=== PATIENT | male | born 1965 | race Caucasian/White ===

== ENCOUNTER 2017-02-06 12:51 | Emergency (ER) | payer OTHER ==
[2017-02-06 12:58] VITALS: BP 138/89; PULSE 86; TEMP 97.7; BMI 32.3
[2017-02-06] MEDS ORDERED: SODIUM CHLORIDE 1,000 ML IV STA (13:22)
[2017-02-06] MEDS ORDERED: MAG HYDROX/AL HYDROX/SIMETH 30 ML UNIT-DOSE CUP PO ONE (13:22)
[2017-02-06] MEDS ORDERED: KETOROLAC TROMETHAMINE 30 MG/1 ML VIAL IVPUSH ONE (13:22)
[2017-02-06] MEDS ORDERED: ONDANSETRON 4 MG/2 ML VIAL IVPB ONE (13:22)
[2017-02-06] MEDS ORDERED: FAMOTIDINE 20 MG/50 ML IVPB 50 ML IVPB ONE ×2 (13:22→14:02)
--- NOTE | 2017-02-06 13:49 | PDOC ---
History of Present Illness - General History Source: Patient Exam Limitations: No Limitations - History of Present Illness Initial Comments: 02/06/17 14:04 The patient is a 51 year old male presenting with his , with no significant past medical history, who presents to the emergency department with diarrhea, nausea and fever for the past 5 days. He describes his diarrhea as nonbloody, with multiple episodes. He reports that he recently arrived back from [facility] 4 days ago, where he had a 1 week stay. He notes that he ate octopus while he was there but he had eaten octopus in the past without any complications. He states that his fever has been as high as 102-103 degrees F. The patient denies chest pain, shortness of breath, headache and dizziness. Denies chills, vomit, and constipation. Denies dysuria, frequency, urgency and hematuria. Allergies: None Past surgical history: None reported Social history: No alcohol, tobacco or drug use reported <Yemi Larkin - Last Filed: 02/06/17 14:04> - General History Source: Patient, Family Exam Limitations: No Limitations <Jarred Willard - Last Filed: 02/06/17 15:01> - General Chief Complaint: Diarrhea Stated Complaint: ABD PAIN Time Seen by Provider: 02/06/17 13:16 Past History <Yemi Larkin - Last Filed: 02/06/17 14:04> - Psycho/Social/Smoking Cessation Hx Anxiety: No Suicidal Ideation: No Smoking History: Never smoked Have you smoked in the past 12 months: No Information on smoking cessation initiated: No Hx Alcohol Use: No Drug/Substance Use Hx: No Substance Use Type: Alcohol <Jarred Willard - Last Filed: 02/06/17 15:01> - Past Medical History Allergies/Adverse Reactions: Allergies Allergy/AdvReac Type Severity Reaction Status Date / Time No Known Allergies Allergy Verified 02/06/17 12:56 Home Medications: Ambulatory Orders Ciprofloxacin [Cipro -] 500 mg PO Q12H #6 tablet 02/06/17 Mag Hydrox/Al Hydrox/Simeth [Mylanta Suspension -] 30 ml PO Q6H PRN #1 bottle Review of Systems - Review of Systems Able to Perform ROS?: Yes Comments:: 02/06/17 14:05 GENERAL/CONSTITUTIONAL: (+) Fever. No chills. No weakness. HEAD, EYES, EARS, NOSE AND THROAT: No change in vision. No ear pain or discharge. No sore throat. CARDIOVASCULAR: No chest pain or shortness of breath RESPIRATORY: No cough, wheezing, or hemoptysis. GASTROINTESTINAL: (+) Diarrhea, nausea. No vomiting or constipation. GENITOURINARY: No dysuria, frequency, or change in urination. MUSCULOSKELETAL: No joint or muscle swelling or pain. No neck or back pain. SKIN: No rash NEUROLOGIC: No headache, vertigo, loss of consciousness, or change in strength/ sensation. ENDOCRINE: No increased thirst. No abnormal weight change HEMATOLOGIC/LYMPHATIC: No anemia, easy bleeding, or history of blood clots. ALLERGIC/IMMUNOLOGIC: No hives or skin allergy. <Yemi Larkin - Last Filed: 02/06/17 14:04> *Physical Exam - Vital Signs Last Vital Signs Temp Pulse Resp BP Pulse Ox 97.7 F 86 18 138/89 100 02/06/17 12:56 02/06/17 12:56 02/06/17 12:56 02/06/17 12:56 02/06/17 12:56 - Physical Exam Comments: 02/06/17 14:05 GENERAL: Awake, alert, and fully oriented, in no acute distress HEAD: No signs of trauma, normocephalic, atraumatic EYES: PERRLA, EOMI, sclera anicteric, conjunctiva clear ENT: Auricles normal inspection, hearing grossly normal, nares patent, oropharynx clear without Exudates. (+) Dry mucosa. NECK: Normal ROM, supple, no lymphadenopathy, JVD, or masses LUNGS: No distress, speaks full sentences, clear to auscultation bilaterally HEART: Regular rate and rhythm, normal S1 and S2, no murmurs, rubs or gallops, peripheral pulses normal and equal bilaterally. ABDOMEN: Soft, nontender, normoactive bowel sounds. No guarding, no rebound. No masses EXTREMITIES: Normal inspection, Normal range of motion, no edema. No clubbing or cyanosis. NEUROLOGICAL: Cranial nerves II through XII grossly intact. Normal speech, normal gait, no focal sensorimotor deficits SKIN: Warm, Dry, normal turgor, no rashes or lesions noted. <Yemi Larkin - Last Filed: 02/06/17 14:04> - Vital Signs Last Vital Signs Temp Pulse Resp BP Pulse Ox 97.7 F 86 18 138/89 100 02/06/17 12:56 02/06/17 12:56 02/06/17 12:56 02/06/17 12:56 02/06/17 12:56 <Jarred Willard - Last Filed: 02/06/17 15:01> ED Treatment Course - LABORATORY CBC & Chemistry Diagram: 02/06/17 14:10 02/06/17 14:10 <Jarred Willard - Last Filed: 02/06/17 15:01> Medical Decision Making - Medical Decision Making 02/06/17 13:46 A portion of this note was documented by scribe services under my direction. I have reviewed the details of the note, within reason, and agree with the documentation with the following case summary and management plan written by me. Patient treated in the ED. Nursing notes are reviewed and incorporated into the medical decision-making. Vital signs reviewed. Peripheral IV access obtained by the nurse, laboratory studies are drawn and sent, reviewed and interpreted by myself. Vital Signs Temp Pulse Resp BP Pulse Ox 97.7 F 86 18 138/89 100 02/06/17 12:56 02/06/17 12:56 02/06/17 12:56 02/06/17 12:56 02/06/17 12:56 51-year-old male with no past medical history presents with persistent diarrhea for 5 days. The patient recent travel from [facility] for vacation. Since then, patient's been persistent diarrhea and temperature 101 degrees yesterday. Denies nausea, vomiting. Denies abdominal pain. I suspect the patient likely has traveler's diarrhea. He'll likely benefit from antibiotics. We'll obtain labs, treat symptoms and give IV fluids and reassess. 02/06/17 14:57 CBC, BMP 02/06/17 14:10 02/06/17 14:10 CMP Sodium 138 mmol/L (136-145) 02/06/17 14:10 Potassium 3.7 mmol/L (3.5-5.1) 02/06/17 14:10 Chloride 102 mmol/L (98-107) 02/06/17 14:10 Carbon Dioxide 25 mmol/L (21-32) 02/06/17 14:10 Anion Gap 11 (8-16) 02/06/17 14:10 BUN 16 mg/dL (7-18) 02/06/17 14:10 Creatinine 1.0 mg/dL (0.7-1.3) 02/06/17 14:10 Creat Clearance w eGFR > 60 (>60) 02/06/17 14:10 Random Glucose 117 mg/dL (74-106) H 02/06/17 14:10 Calcium 8.7 mg/dL (8.5-10.1) 02/06/17 14:10 Magnesium 2.3 mg/dL (1.8-2.4) 02/06/17 14:10 Total Bilirubin 0.5 mg/dL (0.2-1.0) 02/06/17 14:10 AST 43 U/L (15-37) H 02/06/17 14:10 ALT 52 U/L (12-78) 02/06/17 14:10 Alkaline Phosphatase 100 U/L (45-117) 02/06/17 14:10 Total Protein 7.9 g/dl (6.4-8.2) 02/06/17 14:10 Albumin 4.0 g/dl (3.4-5.0) 02/06/17 14:10 Lipase 201 U/L (73-393) 02/06/17 14:10 Labs reviewed. Pt reports feeling better. Will discharge with cipro for traveller's diarrhea. I discussed the physical exam findings, ancillary test results and final diagnoses with the patient. I answered all of the patient's questions. The patient was satisfied with the care received and felt comfortable with the discharge plan and treatment plan. The patient will call their primary care physician within 24 hours to arrange follow-up and will return to the Emergency Department with any new, persistant or worsening symptoms. <Jarred Willard - Last Filed: 02/06/17 15:01> *DC/Admit/Observation/Transfer - Attestations Scribe Attestion: 02/06/17 14:05 Documentation prepared by Yemi Larkin, acting as medical claims examiner for Jarred Willard MD <Yemi Larkin - Last Filed: 02/06/17 14:04> - Discharge Dispostion Admit: No <Jarred Willard - Last Filed: 02/06/17 15:01> Diagnosis at time of Disposition: Travelers' diarrhea - Discharge Dispostion Disposition: HOME Condition at time of disposition: Improved - Prescriptions Prescriptions: Ciprofloxacin [Cipro -] 500 mg PO Q12H #6 tablet Mag Hydrox/Al Hydrox/Simeth [Mylanta Suspension -] 30 ml PO Q6H PRN #1 bottle PRN Reason: Abdominal Pain - Referrals Referrals: STAFF,NOT ON [Primary Care Provider] - - Patient Instructions Printed Discharge Instructions: Traveler's Diarrhea, DI for Diarrhea and Traveler's Diarrhea -- Adult Additional Instructions: You likely have traveller's diarrhea. Your blood work is unremarkable. Drink plenty of fluids and rest. Take 500 mg ciprofloxacin every 12 hours for 3 days. Take 30 cc of maalox every 6 hours as needed for abdominal pain.
[2017-02-06] MEDS ORDERED: MAG HYDROX/AL HYDROX/SIMETH 30 ML UNIT-DOSE CUP ONE (14:01)
[2017-02-06] MEDS ORDERED: KETOROLAC TROMETHAMINE 30 MG/1 ML VIAL ONE (14:01)
[2017-02-06] MEDS ORDERED: ONDANSETRON 4 MG/2 ML VIAL ONE ×2 (14:01→14:03)
[2017-02-06 14:28] LABS: BASOPHIL 0.4 % (0-2.0); EOSINOPHIL 2.3 % (0-4.5); MCH 30.9 pg (25.7-33.7); MCHC 34.3 g/dl (32.0-35.9); MEAN CELL VOLUME 90.3 fl (80-96); MEAN PLT VOLUME 7.5 fl (7.5-11.1); NEUTROPHILS 49.3 % (42.8-82.8); PLATELET COUNT 236 K/MM3 (134-434); RDW 13.5 % (11.9-15.9); WHITE BLOOD COUNT 5.8 K/mm3 (4.0-10.0)
[2017-02-06 14:43] LABS: ANION GAP 11 (8-16); BILIRUBIN,TOTAL 0.5 mg/dL (0.2-1.0); CALCIUM 8.7 mg/dL (8.5-10.1); CO2 25 mmol/L (21-32); COCKROFT - GAULT 138.9; GLUCOSE,RANDOM 117 mg/dL (74-106); MAGNESIUM 2.3 mg/dL (1.8-2.4); SGOT/AST 43 U/L (15-37); SGPT/ALT 52 U/L (12-78); TOT PROT 7.9 g/dl (6.4-8.2)
[2017-02-06 14:44] LABS: ALK PHOS 100 U/L (45-117)
[2017-02-06] MEDS ORDERED: LEVOFLOXACIN 500 MG TABLET (FP) PO ONE (14:59)
[2017-02-06] MEDS ORDERED: LEVOFLOXACIN 500 MG TABLET (FP) ONE (15:16)
== END 2017-02-06 15:07 | disposition home or self-care (01) ==
LOC: JER 12:51
PROC: 3E0337Z Introduction of Electrolytic and Water Balance Substance into Peripheral Vein, Percutaneous Approach (ICD-10-PCS; principal; 2017-02-06)
PROC: 3E0333Z Introduction of Anti-inflammatory into Peripheral Vein, Percutaneous Approach (ICD-10-PCS; 2017-02-06)
PROC: 3E033GC Introduction of Other Therapeutic Substance into Peripheral Vein, Percutaneous Approach (ICD-10-PCS; 2017-02-06)
DX: A08.8 Other specified intestinal infections (principal)
CPT/HCPCS: 36415; 80053; 83690; 83735; 85025; 96361; 96365; 96375; 99282-25